=== PATIENT | male | born 1945 | race Caucasian/White ===

== ENCOUNTER 2017-05-24 08:56 | Day surgery (SDC) | payer OTHER ==
[~2017-05-24] VITALS: Ht 177.8 cm; Wt 86.2 kg
[~2017-05-24 08:56] MED LIST: ALLERGY RELIEF180 MG PO; ARTIFICIAL TEAR15 M6 BOTH EYES; ATROVENT 00.5 MG/2.5 IH; AZELASTINE205.5 MCG/ BOTH NARES; BECONASE AQ25 GM BOTH NARES; BRILINTA90 MG PO; CALCIUM 500 MG1 EACH PO; COREG6.25 M1 PO; CROMOLYN SODIUM26 ML BOTH NARES; GLUCOPHAGE500 MG PO; HYDROCHLOROTHIA25 MG PO; LIPITOR80 MG PO; LO-DOSE ASPIRIN81 M1 PO; LUBRICANT 0.5-015 ML BOTH EYES; NITROSTAT0.4 MG SL; PLAVIX75 MG PO; PROVENTIL,2.5 MG/3 M IH; STRESS-C WITH1 EAC1 PO; SYMBICORT60 INHALAT IH; VASOTEC5 MG PO; VENTOLIN HFA18 GM IH; VITAMIN D31000 UNI2 PO; XANAX0.25 MG PO
[2017-05-24 09:29] VITALS: BP 127/86
[2017-05-24 14:40] VITALS: BP 135/71
[2017-05-24 15:23] VITALS: BP 139/88
== END 2017-05-24 15:28 | disposition home or self-care (01) ==
LOC: SDC 08:56
PROVIDERS: Internal Medicine
DX: E11.3521 Type 2 diabetes mellitus with proliferative diabetic retinopathy with traction retinal detachment involving the macula, right eye (principal); I10 Essential (primary) hypertension; J44.9 Chronic obstructive pulmonary disease, unspecified; F41.9 Anxiety disorder, unspecified; E78.5 Hyperlipidemia, unspecified; I25.2 Old myocardial infarction; Z87.891 Personal history of nicotine dependence; Z95.5 Presence of coronary angioplasty implant and graft; Z79.82 Long term (current) use of aspirin; Z79.02 Long term (current) use of antithrombotics/antiplatelets; Z79.84 Long term (current) use of oral hypoglycemic drugs
CPT/HCPCS: 82948; 85610; J0690; J3300